=== PATIENT | female | born 1980 | race Caucasian/White ===

== ENCOUNTER → 2017-08-30 | Day surgery (SDC) | payer MEDICAID ==
[~2017-08-30] VITALS: Ht 167.6 cm; Wt 131.8 kg
[~2017-08-30] MED LIST: ACETAMINOPHEN/HYDROcodone 325 MG/5 MG TAB ONE; ADIP37.55 PO; ALBUAER3 INH; BUPIVACAINE/EPINEPHRINE 0.25% PF 30 ML VIAL ONE; CHLORHEXIDINE GLUCONATE 2 % 1 PACK (2 CLOTHS) TOPICAL PRN; CHLORHEXIDINE GLUCONATE 4% SOLN 120 ML BTL TOPICAL SCH; CHOL1CAP34 PO; CLAR10CA3 PO; ESCI10TA PO; KETOC2%T TOPICAL; LACTATED RINGER'S 1000 ML IV PRN; LISI10TA3 PO; METF1000 PO; METOPROLOL TARTRATE 25 MG TAB PO PRN; MIDAZOLAM HCL 2 MG/2 ML VIAL ONE; MORPHINE SULFATE 4 MG/ML INJ ONE; OMEP40CA2 PO; SODIUM CHLOR 0.9% 250 ML INJ 250 ML ONE; SODIUM CHLORID 0.9% 500 ML IV PRN; TRIAMCINOLONE ACETONIDE 40 MG/ML VIAL ONE; VANCOMYCIN 1000 MG/NS 250 ML (for <70 kg) IV SCH; VANCOMYCIN HCL 1000 MG VIAL ONE; VITAMIN B-12 IM; VITAMIN D PO; [UNRECOGNIZED DRUG - CODE] TOPICAL; ceFAZolin 2 GM PREMIX 50 ML IV SCH; diphenhydrAMINE HCL 50 MG/ML VIAL ONE
[2017-08-30] MEDS: POVIDONE IODINE 5% (ANTISEPSIS KIT) 4 APPLICATIONS EACH NARE PRN ×2 (11:30→11:45)
--- NOTE | 2017-08-30 14:49 | MP ---
cc: CHRISTEL PELLETIER M.D. DATE OF SURGERY 08/30/2017 SURGEON Christel Pelletier PREOPERATIVE DIAGNOSIS Tear medial meniscus. POSTOPERATIVE DIAGNOSIS 1. Tear medial and lateral meniscus with severe osteoarthritis of the medial compartment. 2. 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 PROCEDURE Arthroscopic debridement with synovectomy, chondroplasty of all three compartments, and subtotal medial meniscectomy and trimming of lateral meniscus. DETAILS OF PROCEDURE The patient was placed on the operating table in the supine position. Adequate general anesthesia was administered by the anesthesiologist, Dr. Sousa. The left knee was prepped and draped in the usual sterile fashion. A timeout was called and the patient's name, procedure, location, etc., were fully confirmed. An Esmarch bandage was used to exsanguinate the lower extremity and the pneumatic tourniquet was inflated initially to 300, which required another 50, total 350 mmHg. The anterolateral portal was created and the joint was distended with lactated Ringer's solution. An examination revealed chondromalacia of the patellofemoral joint with surrounding synovial hypertrophy. The intercondylar fossa revealed fraying of anterior and posterior cruciate ligaments. The medial compartment revealed a posttraumatic or osteoarthritic medial tibial plateau lesion with some superficial lesions also at the femoral condyle superimposed directly over a severe complex tearing of almost the entire medial meniscus. The anterior horn was twisted on itself and totally detached forming a large flap that was unstable. Hand instruments were utilized for excision of the complex tear along with a motorized resector. The articular surface chondroplasty was then performed with the same motorized instrumentation and all debris was removed. The lateral compartment was entered and showed severe flattening and fraying of the lateral meniscus but no definite tear. It was trimmed in its entirety. Surrounding synovium was also excised. A revisit to the patellofemoral joint and suprapatellar pouch was carried out where there appeared to be prominent scar tissue with suprapatellar plicas, and these were excised along with the surrounding synovium. The surface of the patella was shaved with the resector. After thorough aspiration of the entire joint with irrigation the instruments were removed and the two stab wounds closed with simple 3-0 nylon. Xeroform gauze was applied over the wound prior to which we did inject through the lateral portal 9 cc of 0.25% Marcaine with epinephrine along with 1 cc totaling 40 mg of Kenalog. A bulky dressing was applied around the knee joint, reinforced with two Hudson bandages. The tourniquet was deflated and examination of the foot revealed adequate return of circulation. Total tourniquet time was 45 minutes. Sponge counts, needle counts and instrument counts were reported correct x2. The estimated blood loss was minimal and less than 10 cc. The patient tolerated the procedure well and went to the recovery room in satisfactory condition. MD DESHAWN ArredondoH/PARVIZ /1:22 PM /2:25 PM
[2017-08-30 15:45] VITALS: BP 135/86; PULSE 64; RESP 16; TEMP 98.1; O2SAT 97
== END | disposition home or self-care (01) ==
LOC: PHSDC 09:29
PROVIDERS: ATTEND Orthopaedic Surgery
DX: S83.242A Other tear of medial meniscus, current injury, left knee, initial encounter (principal); S83.282A Other tear of lateral meniscus, current injury, left knee, initial encounter; M17.32 Unilateral post-traumatic osteoarthritis, left knee; M22.42 Chondromalacia patellae, left knee; M65.862 Other synovitis and tenosynovitis, left lower leg
CPT/HCPCS: 01400; 29880; J0690; J1200; J2250; J2270; J3301; J3370; J7050; J7120